=== PATIENT | male | born 1965 | race Caucasian/White ===

== ENCOUNTER → 2016-03-20 | Outpatient (CLI) | payer OTHER ==
[~2016-03-20] MED LIST: IOPAMIDOL (ISOVUE-300) 100 ML BTL IV ONE
--- NOTE | 2016-03-20 16:25 | CT ---
CT Abdomen Without Contrast on March 20, 2016 Indication: 51-year-old man with hyperaldosteronism. Evaluate for adrenal gland mass. Technique: 1.25 mm thick helically acquired slices were obtained through the abdomen. The images were evaluated real-time by this radiologist. Since the adrenal glands were normal, no postcontrast imagi ng was performed. Radiation dose reduction technique was utilized. Comparison: None. Findings: The adrenal glands are normal in size. No adrenal gland nodule or retroperitoneal mass. The left renal vein has normal anatomic variation with an anterior aortic and retroaortic branches. The right renal vein is normal. Bilateral nephrolithiasis and benign left parapelvic cysts. A solitary calculus in the right mid kidn ey measures 3 mm in diameter. Two calculi in the left intrarenal collecting system, each, measured 2 mm in diameter. The noncontrast liver, spleen, pancreas, gallbladder, and bowel pattern are normal. The lung bases are clear. The heart size is normal. The abdominal aorta is normal in caliber with min imal calcified plaque. No bone lesions. Uncovertebral and facet spurs results in severe right and mod erate left neural foraminal stenosis at the L5-S1 level. Impression: 1. Normal adrenal glands. No adrenal gland adenoma or retroperitoneal mass. 2. Bilateral nephrolithiasis. 3. Severe right and moderate left neural foraminal stenosis at L5-S1.
== END ==
LOC: CIMAGING 15:16
PROVIDERS: ATTEND Internal Medicine Endocrinology, Diabetes & Metabolism
DX: E26.9 Hyperaldosteronism, unspecified (principal); N20.0 Calculus of kidney; M48.07 Spinal stenosis, lumbosacral region
CPT/HCPCS: 74150-PO; Q9967

== ENCOUNTER 2016-03-28 13:31 | Emergency (ER) | payer OTHER ==
[2016-03-28 13:38] VITALS: PULSE 90; RESP 16; TEMP 98.6; O2SAT 94
[2016-03-28] MEDS ORDERED: TDAP ADULT 0.5 ML INJ (BOOSTRIX) IM ONE (13:42)
[2016-03-28 13:47] VITALS: BP 198/104
--- NOTE | 2016-03-28 14:46 | UCPHY ---
H & P Patient Type: Established Past Medical/Surgical History: This patient presents with a chief complaint of a laceration to his left 4th digit which occurred shortly before arrival when he caught it in a band saw. He denies any motor dysfunction but has noticed some numbness distal to the laceration. Smoking Status: Never smoked Physical Exam: This is a well-developed well-nourished male who is alert lucid and has normal mental status. He is in no acute distress although he appears to be anxious. Examination left hand reveals a 3 cm laceration to the 4th digit overlying the middle phalanx on the ulnar side and extending towards the flexor surface. There is decreased sensation to light touch distal to the wound. Flexor tendon function both of the profundus and sublimis are intact and strong. Constitutional: Initial Vital Signs Temperature (C) 37 C 03/28/16 13:34 Heart Rate 90 03/28/16 13:34 Respiratory Rate 16 03/28/16 13:34 Blood Pressure 198/104 H 03/28/16 13:34 O2 Sat (%) 94 03/28/16 13:34 O2 Delivery Mode Room Air Allergies/Adverse Reactions: No Known Allergies Allergy (Verified 03/28/16 13:38) Home Medications: Medication Instructions Recorded Potassium 02/28/15 RITALIN LA 02/28/15 Synthroid 02/28/15 TESTOSTERONE 02/28/15 Wellbutrin 100mg (RX) 02/28/15 Cytomel 03/28/16 Medical Decision Making Procedures: A digital block was applied using 0.5% Marcaine without epinephrine. The wound was thoroughly cleaned and explored. Both the flexor and extensor tendons were visualized and neither was injured. No foreign bodies remained. Wound edges were trimmed and the wound was closed with 4,5-0 nylon sutures in a dressing was applied. ED Course/Re-evaluation: The patient was given a Tdap - Data Points Medications Given: Discontinued Medications Diphtheria/Tetanus/Acell Pertussis (Boostrix) 0.5 ml IM .ONCE ONE Stop: 03/28/16 13:43 Last Admin: 03/28/16 13:51 Dose: 0.5 ml Departure - Departure Disposition: Home, Routine, Self-Care Clinical Impression: Finger laceration Qualifiers: Encounter type: initial encounter Qualifier Code: (S61.219A) Laceration without foreign body of unspecified finger without damage to nail, initial encounter Digital nerve laceration, finger Qualifiers: Encounter type: initial encounter Qualifier Code: (S64.40XA) Injury of digital nerve of unspecified finger, initial encounter Condition: Good Instructions: Finger Laceration (ED) Additional Instructions: You should consult with a hand surgeon concerning this nerve injury so that you may feel more fully understand the consequences of your decision. A name is provided to you in these pages. Keep her hand elevated as much as possible for the next 3 days. If you notice spreading redness, swelling, increasing pain and tenderness or erick pus you should return immediately since these findings frequently indicate infection. It usually takes 3 days from the time of injury for an infection to begin. Adult Pain & Fever Control: We recommend Acetaminophen (Tylenol) and Ibuprofen (Motrin, Advil) for pain and fever control. When fever is high or pain severe, both drugs can be used at the same time, but at different intervals. Please note the time differences. Your dose is: Acetaminophen [650]mg every 4 to 6 hours ibuprofen [600]mg every [6] hours with food OR naproxen Sodium (Aleve) [440]mg every 12 hours. Note: do not take Acetaminophen with Hydrocodone (Vicodin, Lortab) or Oxycodone (Percocet). These medications also contain Acetaminophen. No more than 3000 mg of Acetaminophen should be taken in 24 hours (for an adult) . The maximal dose of ibuprofen that it is safe in a 24-hour period is 2400 mg. You may take 400 mg every 4 hours, 600 mg every 6 hours or 800 mg every 8 hours safely. Wound Care Follow-Up: Removal of sutures in 12 days. Suture removal is complimentary in uncomplicated cases. Infection or abnormal findings would require reevaluation by the MD. In that case, you may be billed. Referrals: Spring Pillai MD [Medical Doctor] - As per Instructions - PQRS PQRS Measurement: Not applicable
== END 2016-03-28 15:26 | disposition home or self-care (01) ==
LOC: CED 13:31
PROC: 0HQGXZZ Repair Left Hand Skin, External Approach (ICD-10-PCS; principal; 2016-03-28)
DX: S61.215A Laceration without foreign body of left ring finger without damage to nail, initial encounter (principal); S64.495A Injury of digital nerve of left ring finger, initial encounter; Y92.019 Unspecified place in single-family (private) house as the place of occurrence of the external cause; W31.2XXA Contact with powered woodworking and forming machines, initial encounter; Z23 Encounter for immunization; Y99.8 Other external cause status
CPT/HCPCS: 12002-PO; 99214-PO; G0463-PO

== ENCOUNTER → 2016-08-04 | Outpatient (CLI) | payer OTHER | LOC: FIMAGING 09:02 | PROVIDERS: ATTEND Internal Medicine | DX: I10 Essential (primary) hypertension (principal); E03.9 Hypothyroidism, unspecified; G47.33 Obstructive sleep apnea (adult) (pediatric); E06.3 Autoimmune thyroiditis ==

== ENCOUNTER → 2017-12-21 | Outpatient (CLI) | payer BC, OTHER | LOC: CIMAGING 13:48 → EDSTATUS 03-04 10:15 | PROVIDERS: ATTEND Family Medicine | DX: J20.9 Acute bronchitis, unspecified (principal); R50.9 Fever, unspecified; R53.83 Other fatigue | CPT/HCPCS: 71046-PO ==

== ENCOUNTER → 2018-05-10 | Outpatient (CLI) | payer BC, OTHER | LOC: CIMAGING 14:52 | PROVIDERS: ATTEND Family Medicine | DX: R91.1 Solitary pulmonary nodule (principal); J40 Bronchitis, not specified as acute or chronic | CPT/HCPCS: 71046-PO ==

== ENCOUNTER → 2018-05-14 | Outpatient (CLI) | payer BC | LOC: CIMAGING 09:21 | PROVIDERS: ATTEND Family Medicine | DX: R91.1 Solitary pulmonary nodule (principal) | CPT/HCPCS: 71250-PO ==